=== PATIENT | female | born 1965 | race Hispanic/Latino ===

== ENCOUNTER 2018-12-04 09:42 | Emergency (ER) | payer BC ==
[2018-12-04] MEDS ORDERED: MORPHINE SULFATE 4 MG/1ML SYG ONE (10:17)
[2018-12-04] MEDS ORDERED: KETOROLAC TROMETHAMINE 60 MG/2 ML VIAL ONE (10:17)
== END 2018-12-04 10:42 | disposition home or self-care (01) ==
LOC: EDH 09:42
DX: S39.012A Strain of muscle, fascia and tendon of lower back, initial encounter (principal); Z85.3 Personal history of malignant neoplasm of breast; Z90.49 Acquired absence of other specified parts of digestive tract; Z90.710 Acquired absence of both cervix and uterus; Z90.12 Acquired absence of left breast and nipple; Z90.10 Acquired absence of unspecified breast and nipple; Z72.0 Tobacco use; X58.XXXA Exposure to other specified factors, initial encounter; Y93.89 Activity, other specified; Y92.89 Other specified places as the place of occurrence of the external cause; Y99.8 Other external cause status
CPT/HCPCS: 96372 ×2; 99284; J1885; J2270